=== PATIENT | female | born 1960 | race Caucasian/White ===

== ENCOUNTER 2016-09-18 07:01 | Day surgery (SDC) | payer MEDICARE, OTHER ==
[~2016-09-18] VITALS: Ht 165.1 cm; Wt 68.8 kg
[~2016-09-18 07:01] MED LIST: DULCOLAX STOOL100 MG PO; MODAFINIL200 MG PO; NORCO 5-325 TA1 EACH PO; PROVIGIL200 MG PO; SERTRALINE HCL100 MG PO; ZOLOFT100 MG PO
--- NOTE | 2016-09-18 09:33 | NUR ---
09/18/16 0933 Chacha Vicente REPORT FROM MANAGER LAW.
== END 2016-09-18 10:50 | disposition home or self-care (01) ==
LOC: OPS 07:01 → DS 07:01 → OPS 09:30
PROVIDERS: Specialist
PROC: 3E0U33Z Introduction of Anti-inflammatory into Joints, Percutaneous Approach (ICD-10-PCS; principal; 2016-09-18 09:30)
DX: M16.12 Unilateral primary osteoarthritis, left hip (principal); Z90.49 Acquired absence of other specified parts of digestive tract; M25.662 Stiffness of left knee, not elsewhere classified
CPT/HCPCS: 00176; 73501; J2250; J2704; J3301

== ENCOUNTER 2017-04-05 12:55 | Emergency (ER) | payer MEDICARE, OTHER ==
[~2017-04-05] VITALS: Ht 165.1 cm; Wt 66.0 kg
== END 2017-04-05 14:40 | disposition home or self-care (01) ==
LOC: ED 12:55
DX: M16.12 Unilateral primary osteoarthritis, left hip (principal); Z86.73 Personal history of transient ischemic attack (TIA), and cerebral infarction without residual deficits; Z87.891 Personal history of nicotine dependence; Z79.899 Other long term (current) drug therapy; W18.30XA Fall on same level, unspecified, initial encounter
CPT/HCPCS: 73502; 99284

== ENCOUNTER 2021-05-19 07:30 | Day surgery (SDC) | payer MEDICARE, OTHER ==
[~2021-05-19] VITALS: Ht 165.1 cm; Wt 69.2 kg
[~2021-05-19 07:30] MED LIST changes: +CALCIUM500 MG PO
--- NOTE | 2021-05-19 09:11 | NUR ---
05/19/21 0911 Paola Varner 0904-PATIENT ARRIVED TO PACU ON 3L NC PLACED ON 2L NC RR EVEN. PATIENT WAS LAYING LEFT LATERAL NONAROUSABLE REPOSITIONED WITH RN TO BACK. PATIENT HAS HAD A HX OF STROKE AND LEFT ARM IS HOLDING A ROLL. IVF INFUSING 0906-PATIENT REACTIVE TO VERBAL STIMULI OPENING EYES REMAINS VERY DROWSY ORIENTED TO PACU. EASILY DOZES BACK TO SLEEP.
--- NOTE | 2021-05-19 10:01 | OR ---
[facility] [address] [place], [place] [address] Signed DATE OF OPERATION: 05/19/2021 SURGEON: Patito Genao MD PREOPERATIVE DIAGNOSES: 1. Personal history of colonic polyps 2016. 2. Mother with hyperplastic polyps. POSTOPERATIVE DIAGNOSES: 1. 3-4 mm polyps at 7 cm. 2. 4 mm polyp at 20 cm/sigmoid colon. 3. Tortuous sigmoid colon. 4. 3 mm polyps at 12 cm/rectum. PROCEDURE: Colonoscopy with hot biopsy. ESTIMATED BLOOD LOSS: None. INDICATIONS: Marcus is a 60-year-old female, who returns for her followup colonoscopy. Her initial colonoscopy in 2016 came at the age of 55. We removed one tubular adenomatous polyp in the sigmoid colon. We know her mother had hyperplastic polyps in the past. Marcus had a brain aneurysm surgery in the . She had a stroke during that surgery. She now uses a cane to ambulate. She has a lot of trouble with her left arm and leg. She gets around town on the bus. Her brother comes out from [place], [place] every 2 to 3 weeks to check on her and the mother. He will be taking her home afterwards. She has no lower GI complaints. In the office, I gave her a pamphlet on colonoscopy. We reviewed the nature of the test. There is risk including, but not limited to gas bloating, crampy abdominal pain, bleeding, perforation requiring surgery, and missed diagnosis. We also reviewed the need for IV conscious sedation. She has done well with Versed and fentanyl in the past. She expressed understanding and wished to proceed. PROCEDURE NOTE: Marcus was taken into our endoscopy suite and placed in the supine position. We went ahead and gave her some Versed and fentanyl initially to provide some initial sedation. We then rotated her into the left lateral decubitus position onto her left arm and leg. Appropriate padding and monitoring were placed. We then gave her additional sedation. In the end, she received 6 mg of Versed and 150 mcg of fentanyl to cover the case. A Electronically Signed By: PATITO GENAO MD 05/19/21 1001 PATIENT NAME: MARCUS ANDINO OPERATIVE REPORT DATE OF : 58 REPORT #: [id number] PHYSICIAN: PATITO GENAO MD PCP: AVIVA RIVERA MD REPORT IS CONFIDENTIAL AND NOT TO BE RELEASED WITHOUT AUTHORIZATION [facility] [address] [place] [id number] Signed digital rectal exam was performed and this was unremarkable. The adult colonoscope was introduced and advanced under direct visualization of the camera. It takes a few minutes to get through her sigmoid colon as it is moderately tortuous. After that, the scope buckled some in the sigmoid colon, but eventually we made it up to the cecum with the help of additional sedation and abdominal compression. As always, her prep was quite excellent. We could easily see her appendiceal orifice and the ileocecal valve. The scope was then slowly withdrawn. We took several pictures throughout for photodocumentation. The above-mentioned polyps were easily removed with the help of hot biopsy forceps. The scope had been retroflexed and we did not see any additional pathology above the anal canal. After this, the gas was suctioned out and colonoscope removed. Marcus tolerated the procedure well. RECOMMENDATIONS: I will see Marcus back in my office in 7 to 14 days to review her results. I suspect she will stay on the five year plan due to her personal history. Patito Genao MD ALB/MODL /[id number] cc: MD Patito Kim MD Copies: PATITO GENAO MD ~ Electronically Signed By: PATITO GENAO MD 05/19/21 1001 PATIENT NAME: MARCUS ANDINO OPERATIVE REPORT DATE OF : 58 REPORT #: [id number] PHYSICIAN: PATITO GENAO MD PCP: AVIVA RIVERA MD REPORT IS CONFIDENTIAL AND NOT TO BE RELEASED WITHOUT AUTHORIZATION
--- NOTE | 2021-05-19 10:19 | NUR ---
1005-PATIENT BACK TO ROOM FROM PACU. RECEIVED REPORT FROM SAMPSON HANKS. PATIENT IS DROWSY. RESP EVEN AND UNLABORED. DENIES NAUSEA. DENIES PAIN. O2 SATS IN THE MID TO HIGH 90'S ON RA. [employer] PROVIDED. BED RAILS UP. BROTHER AT BEDSIDE. CALL LIGHT WITHIN REACH.
--- NOTE | 2021-05-19 11:00 | NUR ---
1050-PATIENT IS NOT DROWSY SHE WAS FROM PACU. PATIENT IS TAKING SIPS OF WATER. SHE IS READY TO GO HOME. PATIENTS BROTHER HELPING PATIENT GET DRESSED. WHEELCHAIR RIDE GIVEN TO FRONT OF HOSPITAL WHERE HER BROTHER WAS WAITING. HAVING PAIN IN LEFT HIP, DENIES NAUSEA.
--- NOTE | 2021-05-23 09:33 | PATH ---
[facility] [address] [place], [place] [address] Signed SPECIMEN(S): A POLYP AT 7 CM SPECIMEN(S): B SIGMOID POLYP AT 20 CM SPECIMEN(S): C RECTAL POLYP AT 12 CM SPECIMEN SOURCE: A. POLYP AT 7 CM B. SIGMOID POLYP AT 20 CM C. RECTAL POLYP AT 12 CM CLINICAL HISTORY: Colonoscopy. Preop: Family hx. Postop: Polyps. FINAL PATHOLOGIC DIAGNOSIS: A. Colon, polyp at 7 cm, polypectomy: - Hyperplastic polyp. - Negative for dysplasia or malignancy. B. Colon, sigmoid, polyp at 20 cm, polypectomy: - Cauterized colonic mucosa with mild hyperplastic mucosal changes. - Negative for dysplasia or malignancy. C. Rectum, polyp at 12 cm, polypectomy: - Hyperplastic polyp. - Negative for dysplasia or malignancy. COMMENT: Regarding specimen B: Multiple additional deeper levels were examined. NAL:[facility]:C2NR MICROSCOPIC EXAMINATION: Histologic sections of all submitted blocks are examined by light microscopy. These findings, together with the gross examination, support the pathologic diagnosis. GROSS DESCRIPTION: Three specimens are received in three containers labeled with "LG." A. The specimen, labeled "LG, 1," and designated on the requisition "polypectomy at 7 cm," is received in formalin and consists of one fragment of pink-acevedo tissue (0.4 cm in greatest dimension). The specimen is submitted entirely in cassette (A1). B. The specimen, labeled "LG, 2," and designated on the requisition "sigmoid polypectomy at 20 cm," is received in formalin and consists of one fragment of pink-acevedo tissue (0.3 cm in greatest PATIENT NAME: MARCUS ANDINO PATHOLOGY DATE OF : 58 REPORT #: [id number] PHYSICIAN: NADJA PASTRANA PCP: AVIVA RIVERA MD REPORT IS CONFIDENTIAL AND NOT TO BE RELEASED WITHOUT AUTHORIZATION [facility] [address] [place] [address] Signed dimension). The specimen is submitted entirely in cassette (B1). C. The specimen, labeled "LG, 3," and designated on the requisition "rectum polypectomy at 12 cm," is received in formalin and consists of one fragment of pink-acevedo tissue (0.3 cm in greatest dimension). The specimen is submitted entirely in cassette (C1). AC (under the direct supervision of a pathologist) The Gross Description was prepared using a voice recognition system. The report was reviewed for accuracy; however, sound-alike word errors, addition and/or deletions may occur. If there is any question about this report, please contact Client Services. PERFORMING LABORATORY: The technical component was performed by [facility] [address] (Field Mechanic/Site Lead: Gertrude Stephens MD; CLIA# [id number]). [facility] [address] [address] (CLIA# [id number]). Diagnostician: Shawna Armstrong MD Pathologist Electronically Signed 05/20/2021 Copies: ~ PATIENT NAME: MARCUS ANDINO [place] PATHOLOGY DATE OF : 58 REPORT #: [id number] PHYSICIAN: NADJA PATHOLOGY PCP: AVIVA RIVERA MD REPORT IS CONFIDENTIAL AND NOT TO BE RELEASED WITHOUT AUTHORIZATION
== END 2021-05-19 10:50 | disposition home or self-care (01) ==
LOC: DS 07:30
PROVIDERS: ATTEND Colon & Rectal Surgery
PROC: 0DBE8ZZ Excision of Large Intestine, Via Natural or Artificial Opening Endoscopic (ICD-10-PCS; principal; 2021-05-19 08:15)
DX: Z12.11 Encounter for screening for malignant neoplasm of colon (principal); K63.5 Polyp of colon; K62.1 Rectal polyp; I69.359 Hemiplegia and hemiparesis following cerebral infarction affecting unspecified side; Z83.71 Family history of colonic polyps
CPT/HCPCS: 99153; G0500; J0690; J2250; J3010; J7121